=== PATIENT | male | born 1985 | race Caucasian/White ===

== ENCOUNTER 2016-12-12 19:44 | Emergency (ER) | payer SELFPAY ==
[2016-12-12] MEDS ORDERED: NORMAL SALINE 1000 ML 1,000 ML IV PRN (20:08)
--- NOTE | 2016-12-12 20:08 | ER Document Report ---
ED Medical Screen (RME) - General Stated Complaint: BLOOD SUGAR CONCERNS Notes: Patient is a type I diabetic presents emergency Department complaining of nausea , vomiting and elevated blood sugars for the past 3 days. I have greeted and performed a rapid initial assessment of this patient. A comprehensive ED assessment and evaluation of the patient, analysis of test results and completion of the medical decision making process will be conducted by additional ED providers. TRAVEL OUTSIDE OF THE [place] IN LAST 30 DAYS: No - Related Data Allergies/Adverse Reactions: Shrimp Allergy (Severe, Uncoded 02/08/16 23:55) Shortness of Breath Past Medical History Endocrine Medical History: Reports: Hx Diabetes Mellitus Type 1 Skin Medical History: Reports Hx Cellulitis, Denies Hx MRSA Psychiatric Medical History: Denies: Hx Depression - Immunizations Immunizations up to date: No Hx Diphtheria, Pertussis, Tetanus Vaccination: No Physical Exam - Vital signs Vitals: Temp Pulse Resp BP Pulse Ox 98.8 F 123 H 18 122/92 H 98 12/12/16 20:06 12/12/16 20:06 12/12/16 20:06 12/12/16 20:06 12/12/16 20:06 Course - Vital Signs Vital signs: Temp Pulse Resp BP Pulse Ox 98.8 F 123 H 18 122/92 H 98 12/12/16 20:06 12/12/16 20:06 12/12/16 20:06 12/12/16 20:06 12/12/16 20:06
[2016-12-12] MEDS ORDERED: ONDANSETRON 4 MG TAB.RAPDIS PO ONE (20:11)
[2016-12-12 20:46] LABS: ABSOLUTE BASOPHILS # (AUTO) 0.1 10^3/uL (0.0-0.2); ABSOLUTE EOSINOPHILS # (AUTO) 0.1 10^3/uL (0.0-0.6); ABSOLUTE LYMPHOCYTES (AUTO) 2.8 10^3/uL (0.5-4.7); ABSOLUTE MONOCYTES (AUTO) 0.8 10^3/uL (0.1-1.4); BASOPHILS % (AUTO) 0.6 % (0-2); EOSINOPHILS % (AUTO) 0.8 % (0-6); HEMOGLOBIN 16.1 g/dL (13.5-17.0); HGB HCT DIFFERENCE 0.3; LYMPHOCYTES % (AUTO) 26.3 % (13-45); MEAN CORPUSCULAR HEMOGLOBIN 30.4 pg (27.0-33.4); MEAN CORPUSCULAR HGB CONC 33.6 g/dL (32.0-36.0); MEAN CORPUSCULAR VOLUME 91 fl (80-97); MONOCYTES % (AUTO) 7.2 % (3-13); RED CELL DISTRIBUTION WIDTH 12.6 % (11.5-14.0); SEGMENTED NEUTROPHILS % (AUTO) 65.1 % (42-78); WHITE BLOOD COUNT 10.7 10^3/uL (4.0-10.5)
[2016-12-12 20:59] LABS: ALANINE AMINOTRANSFERASE 31 U/L (21-72); ALKALINE PHOSPHATASE 98 U/L (38-126); ASPARTATE AMINO TRANSFERASE 19 U/L (17-59); BILIRUBIN,TOTAL 1.2 mg/dL (0.2-1.3); BLOOD UREA NITROGEN 23 mg/dL (7-20); CALCIUM 10.3 mg/dL (8.4-10.2); CREATININE RESULT 1.08 mg/dL (0.52-1.25); GLUCOSE 270 mg/dL (75-110); TOTAL PROTEIN 8.1 g/dL (6.3-8.2)
--- NOTE | 2016-12-12 20:59 | ER Document Report ---
ED General - General Chief Complaint: High Blood Sugar Stated Complaint: BLOOD SUGAR CONCERNS Time seen by provider: 20:58 Notes: Patient is a 31-year-old male that comes emergency department for chief complaint of high blood sugar readings and nausea with vomiting since last night. Patient is a history of type I diabetes, he states he did take his glucose this morning and thought was 500, took insulin, checked it later and found it was 400 and took 10 units of insulin, states he could not keep water down without vomiting and therefore came to the emergency department. He denies any other medical history and type II diabetes. He denies fevers, cough , headache, abdominal pain. TRAVEL OUTSIDE OF THE [place] IN LAST 30 DAYS: No - Related Data Allergies/Adverse Reactions: Shrimp Allergy (Severe, Uncoded 12/12/16 20:10) Shortness of Breath Past Medical History - General Information source: Patient - Social History Smoking Status: Never Smoker Chew tobacco use (# tins/day): No Frequency of alcohol use: None Drug Abuse: None Lives with: Family Family History: CAD, DM, Hypertension Patient has suicidal ideation: No Patient has homicidal ideation: No Endocrine Medical History: Reports: Hx Diabetes Mellitus Type 1 Renal/ Medical History: Denies: Hx Peritoneal Dialysis Skin Medical History: Reports Hx Cellulitis, Denies Hx MRSA Psychiatric Medical History: Denies: Hx Depression Surgical Hx: Negative - Immunizations Immunizations up to date: No Hx Diphtheria, Pertussis, Tetanus Vaccination: No Hx Pneumococcal Vaccination: 08/14/10 Review of Systems - Review of Systems Constitutional: See HPI EENT: No symptoms reported Cardiovascular: No symptoms reported Respiratory: No symptoms reported Gastrointestinal: See HPI Genitourinary: No symptoms reported Male Genitourinary: No symptoms reported Musculoskeletal: No symptoms reported Skin: No symptoms reported Hematologic/Lymphatic: No symptoms reported Neurological/Psychological: No symptoms reported Physical Exam - Vital signs Vitals: Temp Pulse Resp BP Pulse Ox 98.8 F 123 H 18 122/92 H 98 12/12/16 20:06 12/12/16 20:06 12/12/16 20:06 12/12/16 20:06 12/12/16 20:06 Interpretation: Normal - General General appearance: Alert, Anxious In distress: Mild - Patient slightly pale, appears uncomfortable - HEENT Head: Normocephalic, Atraumatic Eyes: Normal Conjunctiva: Normal Extraocular movements intact: Yes Eyelashes: Normal Pupils: PERRL Sinus: Normal Nasal: Normal Mouth/Lips: Normal Mucous membranes: Dry Pharynx: Normal Neck: Normal - Respiratory Respiratory status: No respiratory distress Chest status: Nontender Breath sounds: Normal. No: Decreased air movement, Nonproductive cough, Wheezing Chest palpation: Normal - Cardiovascular Rhythm: Regular, Tachycardia Heart sounds: Normal auscultation, S1 appreciated, S2 appreciated Murmur: No - Abdominal Inspection: Normal Distension: No distension Bowel sounds: Normal Tenderness: Nontender Organomegaly: No organomegaly - Back Back: Normal, Nontender. No: Tender - Extremities General upper extremity: Normal inspection, Nontender, Normal ROM, Normal strength General lower extremity: Normal inspection, Nontender, Normal ROM, Normal strength - Neurological Neuro grossly intact: Yes Cognition: Normal Orientation: AAOx4 [place] Coma Scale Eye Opening: Spontaneous [place] Coma Scale Verbal: Oriented Alex Coma Scale Motor: Obeys Commands Alex Coma Scale Total: 15 Speech: Normal Motor strength normal: LUE, RUE, LLE, RLE Sensory: Normal - Psychological Associated symptoms: Normal affect, Normal mood - Skin Skin Temperature: Warm Skin Moisture: Dry Skin Color: Pale Course - Re-evaluation Re-evalutation: Patient initially tachycardic and slightly pale-appearing. Given IV fluids, insulin, placed on monitoring, workup pending. CBC shows mild leukocytosis, no shift. Abdomen is actually very soft and benign. Bicarbonate normal, chloride slightly low and as a result anion gap is slightly elevated. VBG shows no acidosis, urine shows dehydration and ketones with some white blood cells, urine was cultured, patient has no urinary complaints. After IV fluid boluses and insulin, tachycardia resolved, blood sugar is slowly downtrending. Discussed with Dr. Tyler, recommends additional insulin and fluids with eventual discharge home as patient is slowly treated to improvement. After full treatment, patient has good skin coloration, well-appearing, eating crackers and drinking fluids, tachycardia resolved, blood sugar normalized. Patient stated he wants to go home. Did discuss return precautions and patient states he will have a low threshold for return. - Vital Signs Vital signs: Temp Pulse Resp BP Pulse Ox 98.4 F 123 H 11 L 137/91 H 100 12/13/16 03:02 12/12/16 20:07 12/13/16 03:02 12/13/16 03:02 12/13/16 03:02 - Laboratory Result Diagrams: 12/12/16 20:28 12/12/16 20:28 Laboratory results interpreted by me: 12/12/16 12/12/16 12/12/16 20:20 20:28 20:28 WBC 10.7 H Chloride 90 L Anion Gap 22 H BUN 23 H Glucose 270 H POC Glucose 234 H Calcium 10.3 H Urine Protein Urine Glucose (UA) Urine Ketones Urine Blood Ur Leukocyte Esterase 12/12/16 12/12/16 12/12/16 20:28 21:07 22:22 WBC Chloride Anion Gap BUN Glucose POC Glucose 322 H 292 H Calcium Urine Protein 100 H Urine Glucose (UA) >=500 H Urine Ketones 80 H Urine Blood SMALL H Ur Leukocyte Esterase TRACE H 12/12/16 12/13/16 23:45 01:56 WBC Chloride Anion Gap BUN Glucose POC Glucose 249 H 127 H Calcium Urine Protein Urine Glucose (UA) Urine Ketones Urine Blood Ur Leukocyte Esterase Discharge - Discharge Clinical Impression: Hyperglycemia, Dehydration Vomiting Qualifiers: Vomiting type: unspecified Vomiting Intractability: non-intractable Nausea presence: with nausea Qualified Code(s): R11.2 - Nausea with vomiting, unspecified Condition: Stable Disposition: HOME, SELF-CARE Additional Instructions: Continue to hydrate, rest, take your insulin, follow-up with the clinic. Return to the emergency department for any concerning or worsening symptoms. Forms: Return to Work
[2016-12-12 21:08] LABS: CARBON DIOXIDE 26 mmol/L (22-30); CHLORIDE 90 mmol/L (98-107); POTASSIUM 4.2 mmol/L (3.6-5.0); SODIUM 137.8 mmol/L (137-145)
[2016-12-12 21:10] LABS: ANION GAP 22 (5-19)
[2016-12-12 21:23] LABS: APPEARANCE,URINE CLEAR; BILIRUBIN,URINE NEGATIVE (NEGATIVE); GLUCOSE, URINE >=500 mg/dL (NEGATIVE); KETONES,URINE 80 mg/dL (NEGATIVE); LEUKOCYTE ESTERASE,URINE TRACE (NEGATIVE); NITRITE,URINE NEGATIVE (NEGATIVE); PROTEIN,URINE 100 mg/dL (NEGATIVE); URINE SPECIFIC GRAVITY 1.026; UROBILINOGEN,URINE NEGATIVE mg/dL (<2.0)
[2016-12-12 21:42] LABS: VENOUS BLOOD BASE EXCESS -0.6 mmol/L; VENOUS BLOOD HCO3 24.8 mmol/L (20-32); VENOUS BLOOD PCO2 43.6 mmHg (35-63); VENOUS BLOOD PH 7.37 (7.30-7.42)
[2016-12-12] MEDS ORDERED: NORMAL SALINE 1000 ML 1,000 ML IV ONE ×4 (21:49→23:54)
[2016-12-12] MEDS ORDERED: INSULIN REG, HUMAN 100 UNIT/ML 3 ML VIAL (PYX) SUBCUT ONE ×2 (22:24→23:54)
[2016-12-13 03:08] VITALS: BP 137/91
== END 2016-12-13 03:06 | disposition home or self-care (01) ==
LOC: ER 19:44
DX: E10.65 Type 1 diabetes mellitus with hyperglycemia (principal); E86.0 Dehydration; R11.2 Nausea with vomiting, unspecified; Z86.14 Personal history of Methicillin resistant Staphylococcus aureus infection; Z79.4 Long term (current) use of insulin
CPT/HCPCS: 99283; 96360; 96361; 36415; 87086; 82962; 85025; 80053; 81001; 82803; S0119; J1815 ×2; J7030 ×2

== ENCOUNTER 2017-04-05 09:46 | Emergency (ER) | payer SELFPAY ==
[2017-04-05 09:53] VITALS: BP 127/99
[2017-04-05] MEDS ORDERED: CEPHALEXIN 500 MG CAPSULE PO ONE (10:31)
--- NOTE | 2017-04-05 10:39 | ER Document Report ---
ED Skin Rash/Insect Bite/Abscs - General Chief Complaint: Abscess Stated Complaint: POSSIBLE ABSCESS Time Seen by Provider: 04/05/17 10:19 Mode of Arrival: Ambulatory Information source: Patient TRAVEL OUTSIDE OF THE [place] IN LAST 30 DAYS: No - HPI Patient complains to provider of: Skin rash/lesion, Tender/swollen area Onset: Other - The cyst has been present for a couple months, he hit it on Monday and has had a lot of pain and swelling since then Onset/Duration: Gradual Quality of pain: Pressure, Sharp, Throbbing Severity: Moderate Pain Level: 3 Skin Character: Abscess Skin Temperature: Warm Quality of rash: Painful Identify cause: No Exacerbated by: Denies Relieved by: Denies Similar symptoms previously: Yes Recently seen / treated by doctor: No - Related Data Allergies/Adverse Reactions: No Known Drug Allergies Allergy (Verified 04/05/17 09:49) Shrimp Allergy (Severe, Uncoded 04/05/17 09:49) Shortness of Breath Past Medical History - Social History Smoking Status: Current Every Day Smoker Frequency of alcohol use: Rare Drug Abuse: None, Methamphetamine Family History: CAD, DM, Hypertension Patient has suicidal ideation: No Patient has homicidal ideation: No - Past Medical History Cardiac Medical History: Reports: None Pulmonary Medical History: Reports: None EENT Medical History: Reports: None Neurological Medical History: Reports: None Endocrine Medical History: Reports: Hx Diabetes Mellitus Type 1 Renal/ Medical History: Reports: None Malignancy Medical History: Reports None GI Medical History: Reports: None Musculoskeltal Medical History: Reports None Skin Medical History: Reports Hx Cellulitis Psychiatric Medical History: Reports: None Traumatic Medical History: Reports: None Infectious Medical History: Reports: None Surgical Hx: Negative - Immunizations Immunizations up to date: No Hx Diphtheria, Pertussis, Tetanus Vaccination: No - unknown Hx Pneumococcal Vaccination: 08/14/10 Review of Systems - Review of Systems Constitutional: No symptoms reported EENT: No symptoms reported Cardiovascular: No symptoms reported Respiratory: No symptoms reported Gastrointestinal: No symptoms reported Genitourinary: No symptoms reported Male Genitourinary: No symptoms reported Musculoskeletal: No symptoms reported Skin: Other - abscess Hematologic/Lymphatic: No symptoms reported Neurological/Psychological: No symptoms reported -: Yes All other systems reviewed and negative Physical Exam - Vital signs Vitals: Temp Pulse Resp BP Pulse Ox 98.0 F 81 14 127/99 H 100 04/05/17 09:50 04/05/17 09:50 04/05/17 09:50 04/05/17 09:50 04/05/17 09:50 Interpretation: Normal - General General appearance: Appears well, Alert - HEENT Head: Normocephalic, Atraumatic Eyes: Normal Pupils: PERRL - Respiratory Respiratory status: No respiratory distress Chest status: Nontender Breath sounds: Normal Chest palpation: Normal - Cardiovascular Rhythm: Regular Heart sounds: Normal auscultation Murmur: No - Abdominal Inspection: Normal Distension: No distension Bowel sounds: Normal Tenderness: Nontender Organomegaly: No organomegaly - Back Back: Normal, Nontender - Extremities General upper extremity: Normal inspection, Nontender, Normal color, Normal ROM , Normal temperature General lower extremity: Normal inspection, Nontender, Normal color, Normal ROM , Normal temperature, Normal weight bearing. No: Esperanza's sign - Neurological Neuro grossly intact: Yes Cognition: Normal Orientation: AAOx4 Alex Coma Scale Eye Opening: Spontaneous [place] Coma Scale Verbal: Oriented Alex Coma Scale Motor: Obeys Commands [place] Coma Scale Total: 15 Speech: Normal Motor strength normal: LUE, RUE, LLE, RLE Sensory: Normal - Psychological Associated symptoms: Normal affect, Normal mood - Skin Skin Temperature: Warm Skin Moisture: Dry Skin Color: Normal Skin irregularity: Abscess - crown of skull Irregularity with: Swelling, Tenderness, Warmth Course - Vital Signs Vital signs: Temp Pulse Resp BP Pulse Ox 98.0 F 81 14 127/99 H 100 04/05/17 09:50 04/05/17 09:50 04/05/17 09:50 04/05/17 09:50 04/05/17 09:50 Procedures - Incision and Drainage Posterior Head Time completed: 10:48 Type: Simple Anesthetic type: Other - none mL's of anesthetic: 0 Blade size: Other - needle I&D procedure: Betadine prep applied Incision Method: Incision made with needle Amount/type of drainage: 5 cc Discharge - Discharge Clinical Impression: Abscess Condition: Stable Disposition: HOME, SELF-CARE Additional Instructions: ABSCESS: You have an abscess (boil). This a pus-forming infection, usually due to staph. Some boils may be left to drain on their own, but most require lancing. From the time the tender lump first appears, it may be three or four days before the abscess is ready to flavia. Local heat and rest help at this stage of treatment. An antibiotic may prevent spread of the infection. Once the abscess is opened, packing may be placed into it. This is done so pus is not sealed inside by premature closure of the cavity. The packing will be removed at your follow-up visit or you may be advised to remove it yourself at home. Sometimes this packing must be replaced a few times during healing. The wound will heal with surprisingly little scar. Depending on the size and location of an abscess, healing can take one to four weeks. You may shower and wash the area around the incision site two or three times a day. Antibiotics may be prescribed, but are usually not necessary after an abscess has been drained. If you develop fever, chills, worsening pain, or increasing swelling in the area, call the doctor or return immediately. CEPHALEXIN: The antibiotic you've been prescribed is a member of the cephalosporin class. This type of antibiotic covers a wide variety of infections, including those of the skin, lungs, and urinary tract. It's useful for staph infections. This antibiotic is slightly similar to the penicillin family. In rare cases , a person who is allergic to penicillin will also be allergic to this medication. If you have had a severe allergic reaction to penicillin, and have not taken this antibiotic since that time, notify your doctor. Antibiotics which cover many germs ("broad spectrum" antibiotics) are more likely to cause diarrhea or "yeast" infections. Women prone to vaginal yeast problems may suffer an attack after taking this antibiotic. In infants, oral thrush (white spots "stuck" on the cheek) or yeast diaper rash may result. See your doctor if these problems occur. Call at once if you develop itching, hives , shortness of breath, or lightheadedness. Soap Cleansing Gently wash the wound daily using a mild soap (like Ivory, Phisoderm, Neutrogena). Use warm water, rubbing gently until all debris, ooze, and crusting have been washed from the wound. Allow to dry briefly (about 10 minutes) after cleaning. Repeat this cleansing at least three times a day for the first two days and then once or twice a day. FOLLOW-UP CARE: Most simple abscesses will not require a follow up visit. If you had packing placed in the abscess, remove it as instructed by the physician. If you have been referred to a physician for follow-up care, call the physicians office for an appointment as you were instructed or within the next two days. If you experience worsening or a significant change in your symptoms, return to the Emergency Department at any time for re-evaluation. Prescriptions: Cephalexin Monohydrate [Keflex 500 mg Capsule] 500 mg PO QID #20 capsule Forms: Elevated Blood Pressure, Smoking Cessation Education, Return to School
== END 2017-04-05 10:45 | disposition home or self-care (01) ==
LOC: ER 09:46
PROC: 0H90XZZ Drainage of Scalp Skin, External Approach (ICD-10-PCS; principal; 2017-04-05)
DX: L02.811 Cutaneous abscess of head [any part, except face] (principal); R21 Rash and other nonspecific skin eruption
CPT/HCPCS: 87070; 87075; 87205; 99283

== ENCOUNTER 2017-12-23 07:56 | Emergency (ER) | payer SELFPAY ==
[2017-12-23] MEDS ORDERED: ONDANSETRON HCL INJ/PF 4 MG/2 ML SDV IV ONE (08:39)
[2017-12-23] MEDS ORDERED: NORMAL SALINE 1000 ML 1,000 ML IV ONE ×2 (08:39→09:32)
[2017-12-23] MEDS ORDERED: IBUPROFEN 800 MG TABLET PO ONE ×2 (08:47→12:45)
--- NOTE | 2017-12-23 08:47 | ER Document Report ---
ED General - General Chief Complaint: Flu Symptoms Stated Complaint: VOMITING Time Seen by Provider: 12/23/17 08:17 Mode of Arrival: Ambulatory Information source: Patient Notes: She presents emergency department with complaints of nausea vomiting flulike symptoms since . Reports he has been nauseated since but started vomiting Monday night. Patient is a diabetic. Reports his sugar was high yesterday. Patient actively vomiting. TRAVEL OUTSIDE OF THE [place] IN LAST 30 DAYS: No - HPI Onset: Other Onset/Duration: Persistent Quality of pain: Achy Severity: Severe Pain Level: 5 Associated symptoms: Diarrhea, Nausea, Vomiting Exacerbated by: Denies Relieved by: Denies Similar symptoms previously: No Recently seen / treated by doctor: No - Related Data Allergies/Adverse Reactions: No Known Drug Allergies Allergy (Verified 12/23/17 07:58) Shrimp Allergy (Severe, Uncoded 12/23/17 07:58) Shortness of Breath Past Medical History - General Information source: Patient - Social History Smoking Status: Current Every Day Smoker Cigarette use (# per day): Yes Frequency of alcohol use: Occasional Drug Abuse: None Occupation: [employer] Family History: CAD, DM, Hypertension Endocrine Medical History: Reports: Hx Diabetes Mellitus Type 1 Renal/ Medical History: Denies: Hx Peritoneal Dialysis Skin Medical History: Reports Hx Cellulitis, Denies Hx MRSA Psychiatric Medical History: Denies: Hx Depression - Immunizations Immunizations up to date: No Hx Diphtheria, Pertussis, Tetanus Vaccination: No - unknown Hx Pneumococcal Vaccination: 08/14/10 Review of Systems - Review of Systems Notes: Review HPI for review of systems., All other systems negative Physical Exam - Vital signs Vitals: Temp Pulse Resp BP Pulse Ox 97.6 F 110 H 16 132/81 H 100 12/23/17 08:01 12/23/17 08:01 12/23/17 08:01 12/23/17 08:01 12/23/17 08:01 - Notes Notes: PHYSICAL EXAMINATION: GENERAL: nontoxic looking, pale HEAD: Atraumatic, normocephalic. EYES: Pupils equal round extraocular movements intact, sclera anicteric, conjunctiva are normal. ENT: nares patent, oropharynx clear without exudates. Moist mucous membranes. NECK: Normal range of motion, supple without lymphadenopathy LUNGS: CTAB and equal. No wheezes rales or rhonchi. HEART: Tachy ABDOMEN: Soft, no tenderness. No guarding, no rebound EXTREMITIES: Normal range of motion, no pitting edema. No cyanosis. NEUROLOGICAL: Cranial nerves grossly intact. Normal sensory/motor exams. PSYCH: Normal mood, normal affect. SKIN: Warm, Dry, normal turgor, no rashes or lesions noted, pale Course - Re-evaluation Re-evalutation: 12/23/17 09:46 IV fluids started Accu-Chek 12/23/17 10:37 reports feels better after reglan. no further vomiting. 12/23/17 13:55 Being p.o. fluids and insulin infusing latest blood glucose 383 will repeat chemistries for any. 12/23/17 15:28 no further vomiting/diarrhea, diet ordered, sq nph- 20 units ordered, will evaluate cmp at 1800, if patient is eating/drinking/ glucose decreased will plan on discharge home. 12/23/17 17:57 pt reports feeling much better, will go to cafeteria for diet. if patient is able to eat without vomiting will plan on discharge. pt reports he has enough insulin at home. - Vital Signs Vital signs: Temp Pulse Resp BP Pulse Ox 98.5 F 99 16 112/69 98 12/23/17 18:52 12/23/17 18:52 12/23/17 18:52 12/23/17 18:52 12/23/17 18:52 - Laboratory Result Diagrams: 12/23/17 08:58 12/23/17 17:30 Laboratory results interpreted by me: 12/23/17 12/23/17 12/23/17 08:58 08:58 10:40 WBC 14.7 H Seg Neutrophils % 87.1 H Lymphocytes % 9.4 L Absolute Neutrophils 12.8 H Carbonic Acid ABG pH ABG pCO2 ABG HCO3 ABG Total CO2 Chloride 89 L Carbon Dioxide 15 L Anion Gap 34 H BUN 37 H Creatinine 1.47 H Est GFR (Non-Af Amer) 56 L Glucose 553 H* POC Glucose Calcium 10.6 H AST ALT Total Protein Albumin 5.5 H Urine Glucose (UA) >=500 H Urine Ketones 80 H Urine Blood SMALL H 12/23/17 12/23/17 12/23/17 11:52 12:53 12:57 WBC Seg Neutrophils % Lymphocytes % Absolute Neutrophils Carbonic Acid 0.88 L ABG pH 7.28 L ABG pCO2 29.3 L ABG HCO3 13.4 L ABG Total CO2 14.3 L Chloride Carbon Dioxide Anion Gap BUN Creatinine Est GFR (Non-Af Amer) Glucose POC Glucose 459 H* 383 H Calcium AST ALT Total Protein Albumin Urine Glucose (UA) Urine Ketones Urine Blood 12/23/17 12/23/17 12/23/17 13:51 14:14 16:05 WBC Seg Neutrophils % Lymphocytes % Absolute Neutrophils Carbonic Acid ABG pH ABG pCO2 ABG HCO3 ABG Total CO2 Chloride Carbon Dioxide 16 L Anion Gap BUN 35 H Creatinine 1.26 H Est GFR (Non-Af Amer) Glucose 338 H POC Glucose 359 H 213 H Calcium AST ALT Total Protein 6.0 L Albumin Urine Glucose (UA) Urine Ketones Urine Blood 12/23/17 12/23/17 12/23/17 17:09 17:30 18:31 WBC Seg Neutrophils % Lymphocytes % Absolute Neutrophils Carbonic Acid ABG pH ABG pCO2 ABG HCO3 ABG Total CO2 Chloride Carbon Dioxide 19 L Anion Gap BUN 30 H Creatinine Est GFR (Non-Af Amer) Glucose 171 H POC Glucose 178 H 189 H Calcium 8.3 L AST 16 L ALT 18 L Total Protein 5.4 L Albumin 3.3 L Urine Glucose (UA) Urine Ketones Urine Blood Discharge - Discharge Clinical Impression: Flu-like symptoms, Nausea vomiting and diarrhea DKA (diabetic ketoacidoses) Qualifiers: Diabetes mellitus type: type 1 Diabetes mellitus complication detail: without coma Qualified Code(s): E10.10 - Type 1 diabetes mellitus with ketoacidosis without coma Condition: Stable Disposition: HOME, SELF-CARE Instructions: Antinausea Medication ([facility]), Diarrhea, Nonspecific ([facility]), Intravenous (IV) Fluids ([facility]), Vomiting ([facility]) Additional Instructions: *You have been evaluated for nausea/vomiting/diarrhea, DKA *Take medication as prescribed *Take over the counter anti-diarrheal as indicated *Monitor your blood glucose, take your insulin as indicated *Ensure adequate fluid intake as discussed to prevent dehydration *Follow up with a primary care provider within 3 days for recheck *Return to ED for worsening condition, changes, needs, return of vomiting, high glucose, concerns Monitor your blood pressure. Your blood pressure was elevated today. This may be because you were anxious, in pain or because you need medication. It is important to follow up with your primary care provider for full evaluation. Forms: Elevated Blood Pressure
[2017-12-23 09:25] LABS: ABSOLUTE LYMPHOCYTES (AUTO) 1.4 10^3/uL (0.5-4.7); ABSOLUTE MONOCYTES (AUTO) 0.5 10^3/uL (0.1-1.4); ABSOLUTE NEUT (AUTO) 12.8 10^3/uL (1.7-8.2); BASOPHILS % (AUTO) 0.2 % (0-2); EOSINOPHILS % (AUTO) 0.2 % (0-6); HEMATOCRIT 50.7 % (37.9-51.0); HEMOGLOBIN 16.7 g/dL (13.5-17.0); LYMPHOCYTES % (AUTO) 9.4 % (13-45); MEAN CORPUSCULAR HEMOGLOBIN 31.5 pg (27.0-33.4); MEAN CORPUSCULAR HGB CONC 32.9 g/dL (32.0-36.0); MEAN CORPUSCULAR VOLUME 96 fl (80-97); MONOCYTES % (AUTO) 3.1 % (3-13); PLATELET COUNT 203 10^3/uL (150-450); SEGMENTED NEUTROPHILS % (AUTO) 87.1 % (42-78); TOTAL CELLS COUNTED % (AUTO) 100 %; WHITE BLOOD COUNT 14.7 10^3/uL (4.0-10.5)
[2017-12-23] MEDS ORDERED: METOCLOPRAMIDE HCL INJ/PF 10 MG/2 ML SDV IV ONE (09:31)
[2017-12-23 09:41] LABS: ALBUMIN 5.5 g/dL (3.5-5.0); CARBON DIOXIDE 15 mmol/L (22-30); CHLORIDE 89 mmol/L (98-107)
[2017-12-23 09:42] LABS: TOTAL PROTEIN 7.7 g/dL (6.3-8.2)
[2017-12-23 09:43] LABS: ALANINE AMINOTRANSFERASE 21 U/L (21-72); ALKALINE PHOSPHATASE 92 U/L (38-126); ASPARTATE AMINO TRANSFERASE 24 U/L (17-59); BILIRUBIN,DIRECT 0.4 mg/dL (0.0-0.4); BILIRUBIN,TOTAL 0.9 mg/dL (0.2-1.3); BLOOD UREA NITROGEN 37 mg/dL (7-20); CALCIUM 10.6 mg/dL (8.4-10.2); POTASSIUM 4.7 mmol/L (3.6-5.0); SODIUM 137.6 mmol/L (137-145)
[2017-12-23 09:48] LABS: ANION GAP 34 (5-19)
[2017-12-23 09:50] LABS: GLUCOSE 553 mg/dL (75-110)
[2017-12-23] MEDS ORDERED: INSULIN REG, HUMAN 100 UNIT/ML 3 ML VIAL (PYX) IV ONE (11:10)
[2017-12-23 11:22] LABS: APPEARANCE,URINE CLEAR; BILIRUBIN,URINE NEGATIVE (NEGATIVE); COLOR,URINE STRAW; GLUCOSE, URINE >=500 mg/dL (NEGATIVE); KETONES,URINE 80 mg/dL (NEGATIVE); LEUKOCYTE ESTERASE,URINE NEGATIVE (NEGATIVE); NITRITE,URINE NEGATIVE (NEGATIVE); PROTEIN,URINE NEGATIVE (NEGATIVE); UROBILINOGEN,URINE NEGATIVE mg/dL (<2.0)
[2017-12-23] MEDS: NORMAL SALINE 1000 ML 1,000 ML IV PRN ×2 (11:50→15:00)
--- NOTE | 2017-12-23 12:03 | RADIOLOGY REPORT (SQ) ---
EXAM DESCRIPTION: CHEST PA/LAT COMPLETED DATE/TIME: 12/23/2017 11:47 am REASON FOR STUDY: flu symptoms, dm COMPARISON: 11/17/2015. EXAM PARAMETERS: NUMBER OF VIEWS: two views TECHNIQUE: Digital Frontal and Lateral radiographic views of the chest acquired. RADIATION DOSE: NA LIMITATIONS: none FINDINGS: LUNGS AND PLEURA: No opacities, masses or pneumothorax. No pleural effusion. MEDIASTINUM AND HILAR STRUCTURES: No masses or contour abnormalities. HEART AND VASCULAR STRUCTURES: Heart normal size. No evidence for failure. BONES: No acute findings. HARDWARE: None in the chest. OTHER: No other significant finding. IMPRESSION: NO SIGNIFICANT RADIOGRAPHIC FINDING IN THE CHEST. TECHNICAL DOCUMENTATION: JOB ID: [id number] [employer]- All Rights Reserved
[2017-12-23 13:20] LABS: ARTERIAL BLOOD BASE EXCESS -11.8 mmol/L; ARTERIAL BLOOD H2CO3 0.88 mmol/L (1.05-1.35); ARTERIAL BLOOD HCO3 13.4 mmol/L (20-26); ARTERIAL BLOOD O2 SATURATION 96.3 % (94-98); ARTERIAL BLOOD PCO2 29.3 mmHg (35-45); ARTERIAL BLOOD PH 7.28 (7.35-7.45); ARTERIAL BLOOD PO2 92.5 mmHg (80-100); ARTERIAL BLOOD TOTAL CO2 14.3 mmol/L (23-27)
[2017-12-23 13:23] LABS: ARTERIAL BLOOD FIO2 ROOM AIR
[2017-12-23 14:40] LABS: ALANINE AMINOTRANSFERASE 26 U/L (21-72); ALBUMIN 3.7 g/dL (3.5-5.0); ALKALINE PHOSPHATASE 53 U/L (38-126); ANION GAP 19 (5-19); ASPARTATE AMINO TRANSFERASE 18 U/L (17-59); BILIRUBIN,DIRECT 0.4 mg/dL (0.0-0.4); BILIRUBIN,TOTAL 0.4 mg/dL (0.2-1.3); BLOOD UREA NITROGEN 35 mg/dL (7-20); CALCIUM 8.5 mg/dL (8.4-10.2); CARBON DIOXIDE 16 mmol/L (22-30); CHLORIDE 104 mmol/L (98-107); GLUCOSE 338 mg/dL (75-110); POTASSIUM 4.1 mmol/L (3.6-5.0); SODIUM 138.8 mmol/L (137-145)
[2017-12-23] MEDS ORDERED: INSULIN NPH (ISOPHANE), HUMAN 100 UNIT/ML 3 ML SUBCUT ONE (14:52)
[2017-12-23 18:02] LABS: ALANINE AMINOTRANSFERASE 18 U/L (21-72); ALBUMIN 3.3 g/dL (3.5-5.0); ALKALINE PHOSPHATASE 47 U/L (38-126); ANION GAP 14 (5-19); ASPARTATE AMINO TRANSFERASE 16 U/L (17-59); BILIRUBIN,DIRECT 0.1 mg/dL (0.0-0.4); BILIRUBIN,TOTAL 0.2 mg/dL (0.2-1.3); BLOOD UREA NITROGEN 30 mg/dL (7-20); CALCIUM 8.3 mg/dL (8.4-10.2); CARBON DIOXIDE 19 mmol/L (22-30); CHLORIDE 106 mmol/L (98-107); GLUCOSE 171 mg/dL (75-110); POTASSIUM 3.8 mmol/L (3.6-5.0); SODIUM 139.2 mmol/L (137-145); TOTAL PROTEIN 5.4 g/dL (6.3-8.2)
[2017-12-23] MEDS ORDERED: ONDANSETRON ODT 4 MG TAB (6 TAB/ER DISP) PO PRN (18:33)
[2017-12-23 19:01] VITALS: BP 129/71
== END 2017-12-23 19:00 | disposition home or self-care (01) ==
LOC: ER 07:56
DX: R11.2 Nausea with vomiting, unspecified (principal); R19.7 Diarrhea, unspecified; E10.10 Type 1 diabetes mellitus with ketoacidosis without coma; F17.210 Nicotine dependence, cigarettes, uncomplicated; Z91.013 Allergy to seafood
CPT/HCPCS: 99284; 96361; 96374; 96375; 36415; 82962; 82803; 85025; 82272; 80053; 81001; 87493; 71046; J1815; J2765; J2405; J7030

== ENCOUNTER → 2018-03-21 | Outpatient (CLI) | payer OTHER ==
[2018-03-21 15:49] LABS: ABSOLUTE BASOPHILS # (AUTO) 0.1 10^3/uL (0.0-0.2); ABSOLUTE EOSINOPHILS # (AUTO) 0.3 10^3/uL (0.0-0.6); ABSOLUTE LYMPHOCYTES (AUTO) 2.5 10^3/uL (0.5-4.7); ABSOLUTE MONOCYTES (AUTO) 0.5 10^3/uL (0.1-1.4); BASOPHILS % (AUTO) 0.5 % (0-2); EOSINOPHILS % (AUTO) 2.9 % (0-6); HEMATOCRIT 44.1 % (37.9-51.0); HEMOGLOBIN 15.1 g/dL (13.5-17.0); LYMPHOCYTES % (AUTO) 26.4 % (13-45); MEAN CORPUSCULAR HEMOGLOBIN 31.9 pg (27.0-33.4); MEAN CORPUSCULAR HGB CONC 34.3 g/dL (32.0-36.0); MEAN CORPUSCULAR VOLUME 93 fl (80-97); MONOCYTES % (AUTO) 5.1 % (3-13); PLATELET COUNT 186 10^3/uL (150-450); RED BLOOD COUNT 4.75 10^6/uL (4.35-5.55); RED CELL DISTRIBUTION WIDTH 12.6 % (11.5-14.0); SEGMENTED NEUTROPHILS % (AUTO) 65.1 % (42-78); TOTAL CELLS COUNTED % (AUTO) 100 %; WHITE BLOOD COUNT 9.3 10^3/uL (4.0-10.5)
[2018-03-21 16:21] LABS: ALANINE AMINOTRANSFERASE 18 U/L (21-72); ALBUMIN 4.3 g/dL (3.5-5.0); ALKALINE PHOSPHATASE 51 U/L (38-126); ANION GAP 13 (5-19); ASPARTATE AMINO TRANSFERASE 16 U/L (17-59); BILIRUBIN,DIRECT 0.3 mg/dL (0.0-0.4); BILIRUBIN,TOTAL 0.3 mg/dL (0.2-1.3); BLOOD UREA NITROGEN 14 mg/dL (7-20); CALCIUM 9.8 mg/dL (8.4-10.2); CARBON DIOXIDE 30 mmol/L (22-30); CHLORIDE 102 mmol/L (98-107); GLUCOSE 171 mg/dL (75-110); POTASSIUM 4.5 mmol/L (3.6-5.0); SODIUM 145.1 mmol/L (137-145); TOTAL PROTEIN 7.2 g/dL (6.3-8.2)
[2018-03-23 12:15] LABS: CHOLESTEROL 137.81 mg/dL (0-200); TRIGLYCERIDES 41 mg/dL (<150)
[2018-03-23 12:25] LABS: DIRECT LDL 70 mg/dL (<100)
== END ==
LOC: CCC 14:35
DX: E11.8 Type 2 diabetes mellitus with unspecified complications (principal)
CPT/HCPCS: 36415; 80053; 80061; 83036; 84443; 85025

== ENCOUNTER 2018-06-20 18:22 | Emergency (ER) | payer SELFPAY ==
[2018-06-20] MEDS ORDERED: INSULIN REG, HUMAN 100 UNIT/ML 3 ML VIAL (PYX) IV ONE (18:45)
[2018-06-20] MEDS ORDERED: NORMAL SALINE 1000 ML 1,000 ML IV ONE ×3 (18:45→20:21)
--- NOTE | 2018-06-20 18:48 | ER Document Report ---
ED Medical Screen (RME) - General Chief Complaint: Abdominal Pain Stated Complaint: VOMITING Time Seen by Provider: 06/20/18 18:45 Notes: 33 years old male with a history of type 1 diabetes, presents today with generally weakness, aches and pain, nausea vomited many times yesterday. No diarrhea. No fever chills or other constitutional symptoms. He states his blood sugar was elevated at home. TRAVEL OUTSIDE OF THE [place] IN LAST 30 DAYS: No - Related Data Allergies/Adverse Reactions: No Known Drug Allergies Allergy (Verified 06/20/18 18:23) Shrimp Allergy (Severe, Uncoded 06/20/18 18:23) Shortness of Breath Past Medical History - Social History Chew tobacco use (# tins/day): No Frequency of alcohol use: Occasional Drug Abuse: None Endocrine Medical History: Reports: Hx Diabetes Mellitus Type 1 Renal/ Medical History: Denies: Hx Peritoneal Dialysis Skin Medical History: Reports Hx Cellulitis, Denies Hx MRSA Psychiatric Medical History: Denies: Hx Depression - Immunizations Immunizations up to date: No Hx Diphtheria, Pertussis, Tetanus Vaccination: No - unknown Physical Exam - Vital signs Vitals: Temp Pulse Resp BP Pulse Ox 99.0 F 125 H 20 136/87 H 100 06/20/18 18:36 06/20/18 18:36 06/20/18 18:36 06/20/18 18:36 06/20/18 18:36 Course - Vital Signs Vital signs: Temp Pulse Resp BP Pulse Ox 99.0 F 125 H 20 136/87 H 100 06/20/18 18:36 06/20/18 18:36 06/20/18 18:36 06/20/18 18:36 06/20/18 18:36 Doctor's Discharge - Discharge Referrals: [facility] [Primary Care Provider] - Follow up as needed
[2018-06-20 19:44] LABS: ABSOLUTE BASOPHILS # (AUTO) 0.1 10^3/uL (0.0-0.2); ABSOLUTE EOSINOPHILS # (AUTO) 0.1 10^3/uL (0.0-0.6); ABSOLUTE LYMPHOCYTES (AUTO) 2.8 10^3/uL (0.5-4.7); ABSOLUTE MONOCYTES (AUTO) 0.8 10^3/uL (0.1-1.4); ABSOLUTE NEUT (AUTO) 8.1 10^3/uL (1.7-8.2); BASOPHILS % (AUTO) 0.5 % (0-2); EOSINOPHILS % (AUTO) 0.7 % (0-6); HEMATOCRIT 51.8 % (37.9-51.0); HEMOGLOBIN 17.7 g/dL (13.5-17.0); LYMPHOCYTES % (AUTO) 23.5 % (13-45); MEAN CORPUSCULAR HEMOGLOBIN 31.8 pg (27.0-33.4); MEAN CORPUSCULAR HGB CONC 34.3 g/dL (32.0-36.0); MEAN CORPUSCULAR VOLUME 93 fl (80-97); MONOCYTES % (AUTO) 6.9 % (3-13); PLATELET COUNT 202 10^3/uL (150-450); RED BLOOD COUNT 5.58 10^6/uL (4.35-5.55); RED CELL DISTRIBUTION WIDTH 12.6 % (11.5-14.0); SEGMENTED NEUTROPHILS % (AUTO) 68.4 % (42-78); TOTAL CELLS COUNTED % (AUTO) 100 %; WHITE BLOOD COUNT 11.9 10^3/uL (4.0-10.5)
[2018-06-20 19:57] LABS: APPEARANCE,URINE SLIGHTLY-CLOUDY; BILIRUBIN,URINE NEGATIVE (NEGATIVE); COLOR,URINE YELLOW; GLUCOSE, URINE 50 mg/dL (NEGATIVE); KETONES,URINE 20 mg/dL (NEGATIVE); LEUKOCYTE ESTERASE,URINE SMALL (NEGATIVE); NITRITE,URINE NEGATIVE (NEGATIVE); PROTEIN,URINE 100 mg/dL (NEGATIVE); URINE SPECIFIC GRAVITY 1.025
[2018-06-20 20:08] LABS: URINE AMPHETAMINES SCREEN NEGATIVE; URINE BARBITURATES SCREEN NEGATIVE; URINE BENZODIAZEPINES SCREEN NEGATIVE; URINE COCAINE SCREEN NEGATIVE; URINE MARIJUANA (THC) SCREEN UNCONFIRMED POSITIVE; URINE METHADONE SCREEN NEGATIVE; URINE PHENCYCLIDINE SCREEN NEGATIVE
[2018-06-20 20:34] LABS: VENOUS BLOOD BASE EXCESS 5.5 mmol/L; VENOUS BLOOD HCO3 28.3 mmol/L (20-32); VENOUS BLOOD PCO2 35.6 mmHg (35-63); VENOUS BLOOD PH 7.52 (7.30-7.42)
[2018-06-20 20:48] LABS: ALANINE AMINOTRANSFERASE 26 U/L (21-72); ALBUMIN 4.8 g/dL (3.5-5.0); ALKALINE PHOSPHATASE 62 U/L (38-126); ASPARTATE AMINO TRANSFERASE 32 U/L (17-59); BILIRUBIN,DIRECT 0.5 mg/dL (0.0-0.4); BILIRUBIN,TOTAL 1.1 mg/dL (0.2-1.3); BLOOD UREA NITROGEN 42 mg/dL (7-20); CALCIUM 9.6 mg/dL (8.4-10.2); GLUCOSE 151 mg/dL (75-110); POTASSIUM 3.6 mmol/L (3.6-5.0); TOTAL PROTEIN 7.7 g/dL (6.3-8.2)
[2018-06-20 20:53] LABS: CARBON DIOXIDE 27 mmol/L (22-30); CHLORIDE 88 mmol/L (98-107)
[2018-06-20 20:59] LABS: ANION GAP 22 (5-19)
--- NOTE | 2018-06-20 21:57 | ER Document Report ---
ED General - General Chief Complaint: Abdominal Pain Stated Complaint: VOMITING Time Seen by Provider: 06/20/18 18:45 TRAVEL OUTSIDE OF THE [place] IN LAST 30 DAYS: No - HPI Patient complains to provider of: Nausea vomiting abdominal pain Notes: Patient coming in for nausea vomiting, pain. Patient states blood sugars have been running high in the past few days. Patient does have a history of diabetes insulin-dependent and has had a history of DKA in the past. Patient states significant other at bedside has been sick with similar symptoms recently. Patient states compliance with his medications. Patient denies any recent antibiotics denies any fevers chills diarrhea. There is diffuse abdominal pain. - Related Data Allergies/Adverse Reactions: No Known Drug Allergies Allergy (Verified 06/20/18 18:23) Shrimp Allergy (Severe, Uncoded 06/20/18 18:23) Shortness of Breath Past Medical History - Social History Smoking Status: Current Every Day Smoker Chew tobacco use (# tins/day): No Frequency of alcohol use: Occasional Drug Abuse: None Family History: CAD, DM, Hypertension Patient has suicidal ideation: No Patient has homicidal ideation: No Endocrine Medical History: Reports: Hx Diabetes Mellitus Type 1 Renal/ Medical History: Denies: Hx Peritoneal Dialysis Skin Medical History: Reports Hx Cellulitis, Denies Hx MRSA Psychiatric Medical History: Denies: Hx Depression - Immunizations Immunizations up to date: No Hx Diphtheria, Pertussis, Tetanus Vaccination: No - unknown Hx Pneumococcal Vaccination: 08/14/10 Review of Systems - Review of Systems Constitutional: No symptoms reported EENT: No symptoms reported Cardiovascular: No symptoms reported Respiratory: No symptoms reported Gastrointestinal: Abdominal pain, Nausea, Vomiting Genitourinary: No symptoms reported Male Genitourinary: No symptoms reported Musculoskeletal: No symptoms reported Skin: No symptoms reported Hematologic/Lymphatic: No symptoms reported Neurological/Psychological: No symptoms reported -: Yes All other systems reviewed and negative Physical Exam - Vital signs Vitals: Temp Pulse Resp BP Pulse Ox 99.0 F 125 H 20 136/87 H 100 06/20/18 18:36 06/20/18 18:36 06/20/18 18:36 06/20/18 18:36 06/20/18 18:36 Interpretation: Tachypneic - General General appearance: Appears well, Alert - HEENT Head: Normocephalic, Atraumatic Eyes: Normal Pupils: PERRL - Respiratory Respiratory status: No respiratory distress Chest status: Nontender Breath sounds: Normal Chest palpation: Normal - Cardiovascular Rhythm: Regular Heart sounds: Normal auscultation Murmur: No - Abdominal Inspection: Normal Distension: No distension Bowel sounds: Normal Tenderness: Nontender Organomegaly: No organomegaly - Back Back: Normal, Nontender - Extremities General upper extremity: Normal inspection, Nontender, Normal color, Normal ROM , Normal temperature General lower extremity: Normal inspection, Nontender, Normal color, Normal ROM , Normal temperature, Normal weight bearing. No: Esperanza's sign - Neurological Neuro grossly intact: Yes Cognition: Normal Orientation: AAOx4 [place] Coma Scale Eye Opening: Spontaneous Alex Coma Scale Verbal: Oriented Alex Coma Scale Motor: Obeys Commands Alex Coma Scale Total: 15 Speech: Normal Motor strength normal: LUE, RUE, LLE, RLE Sensory: Normal - Psychological Associated symptoms: Normal affect, Normal mood - Skin Skin Temperature: Warm Skin Moisture: Dry Skin Color: Normal Course - Re-evaluation Re-evalutation: 06/21/18 00:30 Laboratory studies are consistent with dehydration and hemoconcentration. There is no acidosis no signs of acute DKA. Patient's urine drug screen did return positive for marijuana. Educated patient about marijuana use and the possibility nausea vomiting due to hyperemesis due to candidiasis. Patient states understanding. Patient otherwise has improvement of his vital signs will discharge patient home with anti-medic medication patient is encouraged to follow-up primary care physician. 06/21/18 00:31 - Vital Signs Vital signs: Temp Pulse Resp BP Pulse Ox 98.7 F 125 H 20 135/79 H 96 06/20/18 22:49 06/20/18 18:36 06/20/18 18:36 06/20/18 22:42 06/20/18 22:42 - Laboratory Result Diagrams: 06/20/18 19:09 06/20/18 20:10 Laboratory results interpreted by me: 06/20/18 06/20/18 06/20/18 18:46 19:09 19:09 WBC 11.9 H RBC 5.58 H Hgb 17.7 H Hct 51.8 H VBG pH Chloride Anion Gap BUN Glucose POC Glucose 121 H Direct Bilirubin Urine Protein 100 H Urine Glucose (UA) 50 H Urine Ketones 20 H Urine Blood SMALL H Urine Urobilinogen 2.0 H Ur Leukocyte Esterase SMALL H 06/20/18 06/20/18 20:10 20:10 WBC RBC Hgb Hct VBG pH 7.52 H Chloride 88 L Anion Gap 22 H BUN 42 H Glucose 151 H POC Glucose Direct Bilirubin 0.5 H Urine Protein Urine Glucose (UA) Urine Ketones Urine Blood Urine Urobilinogen Ur Leukocyte Esterase Discharge - Discharge Clinical Impression: Marijuana smoker, Nausea & vomiting Condition: Good Disposition: HOME, SELF-CARE Instructions: Abdominal Pain ([facility]), Vomiting ([facility]) Additional Instructions: Follow-up with your primary care physician. Return to ER if symptoms worsen. Take medications as prescribed. Please be sure to stick to a clear liquid diet for the next 12-24 hours. Prescriptions: Ondansetron [Zofran Odt] 4 mg PO Q6 PRN #30 tab.rapdis PRN Reason: For Nausea/Vomiting Promethazine HCl [Phenergan 25 mg Tablet] 25 mg PO Q6 #30 tablet Referrals: [facility] [NO LOCAL MD] - Follow up as needed
[2018-06-20 22:50] VITALS: BP 135/79
== END 2018-06-20 22:50 | disposition home or self-care (01) ==
LOC: ER 18:22
DX: R11.2 Nausea with vomiting, unspecified (principal); F12.90 Cannabis use, unspecified, uncomplicated; R10.84 Generalized abdominal pain; E10.9 Type 1 diabetes mellitus without complications; F17.200 Nicotine dependence, unspecified, uncomplicated; Z91.013 Allergy to seafood
CPT/HCPCS: 99284; 96360; 96361; 36415; 82962; 85025; 80053; 81001; 80307; 82803; J7030

== ENCOUNTER → 2018-09-24 | Outpatient (CLI) | payer OTHER ==
[2018-09-24 10:24] LABS: BLOOD UREA NITROGEN 14 mg/dL (7-20); URIC ACID 4.2 mg/dL (3.5-8.5)
[2018-09-25 15:37] LABS: CREATININE URINE 87.6 mg/dL (Not Estab.); MICROALBUMIN URINE 28.3 ug/mL (Not Estab.)
== END ==
LOC: CCC 08:42
DX: E11.8 Type 2 diabetes mellitus with unspecified complications (principal)
CPT/HCPCS: 36415; 82043; 82565; 82570; 83036; 84520; 84550

== ENCOUNTER → 2019-09-30 | Outpatient (CLI) | payer OTHER ==
[2019-09-30 15:49] LABS: ABSOLUTE EOSINOPHILS # (AUTO) 0.3 10^3/uL (0.0-0.6); ABSOLUTE LYMPHOCYTES (AUTO) 2.7 10^3/uL (0.5-4.7); ABSOLUTE MONOCYTES (AUTO) 0.4 10^3/uL (0.1-1.4); BASOPHILS % (AUTO) 0.6 % (0-2); EOSINOPHILS % (AUTO) 5.3 % (0-6); HEMOGLOBIN 16.5 g/dL (13.5-17.0); LYMPHOCYTES % (AUTO) 41.4 % (13-45); MEAN CORPUSCULAR HEMOGLOBIN 31.8 pg (27.0-33.4); MEAN CORPUSCULAR HGB CONC 33.8 g/dL (32.0-36.0); MEAN CORPUSCULAR VOLUME 94 fl (80-97); MONOCYTES % (AUTO) 6.2 % (3-13); PLATELET COUNT 166 10^3/uL (150-450); RED BLOOD COUNT 5.21 10^6/uL (4.35-5.55); RED CELL DISTRIBUTION WIDTH 12.6 % (11.5-14.0); SEGMENTED NEUTROPHILS % (AUTO) 46.5 % (42-78); TOTAL CELLS COUNTED % (AUTO) 100 %; WHITE BLOOD COUNT 6.4 10^3/uL (4.0-10.5)
[2019-09-30 16:13] LABS: ALBUMIN 4.6 g/dL (3.5-5.0); ALKALINE PHOSPHATASE 57 U/L (38-126); ANION GAP 10 (5-19); ASPARTATE AMINO TRANSFERASE 19 U/L (17-59); BILIRUBIN,DIRECT 0.1 mg/dL (0.0-0.4); BILIRUBIN,TOTAL 0.7 mg/dL (0.2-1.3); BLOOD UREA NITROGEN 16 mg/dL (7-20); CALCIUM 9.9 mg/dL (8.4-10.2); CARBON DIOXIDE 30 mmol/L (22-30); CHLORIDE 103 mmol/L (98-107); CHOLESTEROL 201.32 mg/dL (0-200); GLUCOSE 85 mg/dL (75-110); POTASSIUM 4.6 mmol/L (3.6-5.0); TOTAL PROTEIN 7.9 g/dL (6.3-8.2); TRIGLYCERIDES 49 mg/dL (<150); URIC ACID 4.5 mg/dL (3.5-8.5)
[2019-09-30 16:24] LABS: DIRECT LDL 132 mg/dL (<100)
[2019-10-02 10:37] LABS: CREATININE URINE 137.2 mg/dL (Not Estab.); MICROALBUMIN URINE 34.4 ug/mL (Not Estab.)
== END ==
LOC: OD 15:06
DX: I10 Essential (primary) hypertension (principal); E11.8 Type 2 diabetes mellitus with unspecified complications
CPT/HCPCS: 36415; 80053; 80061; 82043; 82570; 83036; 83735; 84550; 85025